=== PATIENT | female | born 1945 | race Caucasian/White ===

== ENCOUNTER → 2018-09-05 | Outpatient (CLI) | payer MEDICARE, OTHER | END | disposition home or self-care (01) | LOC: HKI 15:48 | DX: Z47.1 Aftercare following joint replacement surgery (principal); Z96.652 Presence of left artificial knee joint | CPT/HCPCS: 73564; 73564-RT ==

== ENCOUNTER → 2018-10-09 | Outpatient (CLI) | payer MEDICARE, OTHER | END | disposition home or self-care (01) | LOC: HKI 15:16 | DX: M17.11 Unilateral primary osteoarthritis, right knee (principal) | CPT/HCPCS: 77073 ==

== ENCOUNTER → 2018-12-08 | Outpatient (CLI) | payer MEDICARE, OTHER | END | disposition home or self-care (01) | LOC: RAD 15:49 | DX: Z01.818 Encounter for other preprocedural examination (principal) | CPT/HCPCS: 71046 ==

== ENCOUNTER → 2018-12-11 | Outpatient (CLI) | payer MEDICARE, OTHER | END | disposition home or self-care (01) | LOC: HKI 10:20 | DX: M06.061 Rheumatoid arthritis without rheumatoid factor, right knee (principal); M25.561 Pain in right knee | CPT/HCPCS: 77073 ==

== ENCOUNTER 2018-12-16 05:20 | Observation (INO) | payer MEDICARE, OTHER ==
[2018-12-16] MEDS: ACETAMINOPHEN 500 MG TAB PO (06:00)
[2018-12-16] MEDS: CEFAZOLIN 2 GM/50 ML (PMX) 50 ML (FOR WT < 120 KG) IVPB (06:00)
[2018-12-16] MEDS: TOTAL KNEE REPLACEMENT PAIN COCKTAIL IRR (06:00)
[2018-12-16] MEDS ORDERED: POLYMYXIN B 500000 UNIT INJ (06:55)
[2018-12-16] MEDS ORDERED: CEFAZOLIN 1 GM INJ (07:00)
[2018-12-16] MEDS ORDERED: SEVOFLURANE 15 MIN (07:00)
[2018-12-16] MEDS ORDERED: ONDANSETRON 4 MG INJ (07:00)
[2018-12-16] MEDS ORDERED: DEXAMETHASONE 4 MG/ML 5 ML INJ (07:00)
[2018-12-16] MEDS: LANSOPRAZOLE 30 MG CAP PO (07:10)
[2018-12-16] MEDS: ONDANSETRON 4 MG INJ IV (07:10)
[2018-12-16] MEDS: CELECOXIB 200 MG CAP PO (07:11)
[2018-12-16] MEDS: ACETAMINOPHEN 1000MG/100ML IV 100 ML IVPB (07:12)
[2018-12-16] MEDS: LACTATED RINGER'S 1,000 ML IV ×3 (07:13→18:50)
[2018-12-16] MEDS ORDERED: PROPOFOL 20 ML (07:25)
[2018-12-16] MEDS ORDERED: MIDAZOLAM 1 MG/ML 2 ML INJ (07:25)
[2018-12-16] MEDS ORDERED: FENTAnyl 50 MCG/ML VIAL (07:25)
[2018-12-16] MEDS ORDERED: ROPIVACAINE 0.5 % 30 ML VIAL (07:25)
[2018-12-16] MEDS ORDERED: LIDOCAINE 2% (SDV) 5 ML INJ (07:25)
[2018-12-16] MEDS ORDERED: METOCLOPRAMIDE 10 MG INJ (07:26)
[2018-12-16] MEDS ORDERED: LORAZEPAM 2 MG INJ IV (07:30)
[2018-12-16] MEDS ORDERED: HYDROmorphONE 1 MG/5 ML IV SYRINGE IV ×3 (07:30)
[2018-12-16] MEDS ORDERED: IPRATROPIUM (NEB) 0.5 MG/2.5 ML AMP HHN (07:30)
[2018-12-16] MEDS ORDERED: FENTAnyl 50 MCG/ML VIAL IV ×2 (07:30)
[2018-12-16] MEDS ORDERED: MIDAZOLAM 1 MG/ML 2 ML INJ IV (07:30)
[2018-12-16] MEDS ORDERED: LABETALOL HCL 20MG INJ IV (07:30)
[2018-12-16] MEDS ORDERED: DIPHENHYDRAMINE 50 MG INJ IV (07:30)
[2018-12-16] MEDS ORDERED: ONDANSETRON 4 MG INJ IV (07:30)
[2018-12-16] MEDS ORDERED: LEVALBUTEROL (NEB) 1.25 MG/0.5 ML AMP HHN (07:30)
[2018-12-16] MEDS ORDERED: hydrALAzine 20 MG INJ IV (07:30)
[2018-12-16] MEDS ORDERED: MEPERIDINE 25 MG INJ IV (07:30)
[2018-12-16] MEDS ORDERED: morphine SULFATE/PF (10 MG/10 ML) INJ (07:32)
[2018-12-16] MEDS ORDERED: EPINEPHrine 1 MG INJ (07:34)
[2018-12-16] MEDS: TRANEXAMIC ACID 1GM/100ML(PMX) 100 ML AT CLOSURE X1 IVPB (08:34)
[2018-12-16] MEDS: TRANEXAMIC ACID 1GM/100ML(PMX) 100 ML AT INCISION X1 IVPB ×2 (08:35→10:32)
[2018-12-16] MEDS ORDERED: NA PHOSPHATE/BIPHOS 133 ML ENEMA PR (12:00)
[2018-12-16] MEDS ORDERED: BISACODYL 10 MG SUPP PR (12:00)
[2018-12-16] MEDS ORDERED: BETHANECHOL 25 MG TAB PO (12:00)
[2018-12-16] MEDS ORDERED: NACL 0.9% 3 ML SYG IV (12:00)
[2018-12-16] MEDS ORDERED: MAGNESIUM HYDROXIDE 30ML CUP PO (12:00)
[2018-12-16] MEDS ORDERED: HYDROmorphONE 1 MG/ML SYG IV (12:00)
[2018-12-16] MEDS ORDERED: oxyCODONE 5 MG TAB PO (12:00)
[2018-12-16] MEDS ORDERED: SENNA/DOCUSATE NA (8.6MG/50MG) TAB PO (12:00)
[2018-12-16] MEDS ORDERED: NALOXONE (0.4 MG/ML) INJ IV (12:00)
[2018-12-16] MEDS: DOCUSATE SODIUM 100 MG CAP PO (12:58)
[2018-12-16] MEDS: CEFAZOLIN 2 GM/50 ML (PMX) 50 ML IVPB ×2 (16:19→23:43)
[2018-12-16] MEDS: DIPHENHYDRAMINE 50 MG INJ IV (18:53)
[2018-12-16] MEDS: ATORVASTATIN 20 MG TAB PO (20:35)
[2018-12-16] MEDS: GABAPENTIN 300 MG CAP PO (20:35)
[2018-12-16] MEDS: CALCIUM/VITAMIN D (500/200) TAB PO (20:36)
[2018-12-17 05:11] LABS: ADD MAN DIFF? NO
[2018-12-17 05:23] LABS: BASOPHILS % 0.1 % (0.0-2.0); EOSINOPHILS % 0.1 % (0.0-7.0); HEMATOCRIT 30.7 % (37.0-47.0); HEMOGLOBIN 10.2 g/dl (12.0-16.0); LYMPHOCYTES # 1.3 10^3/ul (0.8-2.9); LYMPHOCYTES % 10.1 % (15.0-51.0); MEAN CORPUSCULAR HEMOGLOBIN 29.1 pg (29.0-33.0); MEAN CORPUSCULAR HGB CONC 33.2 g/dl (32.0-37.0); MEAN CORPUSCULAR VOLUME 87.5 fl (82.0-101.0); MEAN PLATELET VOLUME 10.1 fl (7.4-10.4); MONOCYTE # 0.9 10^3/ul (0.3-0.9); MONOCYTES % 6.9 % (0.0-11.0); NEUTROPHIL # 10.5 10^3/ul (1.6-7.5); NEUTROPHILS % 82.4 % (39.0-77.0); PLATELET COUNT 218 10^3/UL (140-415); RED BLOOD COUNT 3.51 10^6/ul (4.20-5.40); RED CELL DISTRIBUTION WIDTH 14.7 % (11.5-14.5)
[2018-12-17 05:23] LABS: WHITE BLOOD COUNT 12.7 10^3/ul (4.8-10.8)
[2018-12-17 05:53] LABS: ANION GAP 9 (5-13); BLOOD UREA NITROGEN 13 mg/dl (7-20); CALCIUM 9.2 mg/dl (8.4-10.2); CARBON DIOXIDE 29 mmol/L (21-31); CHLORIDE 103 mmol/L (97-110); CREATININE 0.63 mg/dl (0.44-1.00); GLUCOSE 127 mg/dl (70-220); POTASSIUM 4.6 mmol/L (3.5-5.1); SODIUM 141 mmol/L (135-144)
[2018-12-17] MEDS: CEFAZOLIN 2 GM/50 ML (PMX) 50 ML IVPB (08:43)
[2018-12-17] MEDS: CALCIUM/VITAMIN D (500/200) TAB PO ×2 (08:44→20:48)
[2018-12-17] MEDS: DOCUSATE SODIUM 100 MG CAP PO ×2 (08:44→20:48)
[2018-12-17] MEDS: ASPIRIN (EC) 81 MG TAB PO ×2 (08:44→20:48)
[2018-12-17] MEDS: FOLIC ACID 1 MG TAB PO (08:44)
[2018-12-17] MEDS: AMLODIPINE 5 MG TAB PO (08:45)
[2018-12-17] MEDS: METOPROLOL (XL) 50 MG TAB PO (08:45)
[2018-12-17] MEDS: oxyCODONE 5 MG TAB PO ×4 (10:11→21:54)
[2018-12-17] MEDS ORDERED: ONDANSETRON 4 MG INJ IV (12:00)
[2018-12-17] MEDS: LACTATED RINGER'S 1,000 ML IV (15:00)
[2018-12-17] MEDS: ACETAMINOPHEN 500 MG TAB PO ×2 (15:25→22:51)
[2018-12-17] MEDS: GABAPENTIN 300 MG CAP PO (20:48)
[2018-12-17] MEDS: ATORVASTATIN 20 MG TAB PO (20:48)
[2018-12-18] MEDS: oxyCODONE 5 MG TAB PO ×3 (02:19→11:57)
[2018-12-18 06:18] LABS: ADD MAN DIFF? NO
[2018-12-18] MEDS: ACETAMINOPHEN 500 MG TAB PO (06:28)
[2018-12-18] MEDS: PANTOPRAZOLE (EC) 40 MG TAB PO (06:28)
[2018-12-18 06:30] LABS: BASOPHIL # 0.1 10^3/ul (0.0-0.1); BASOPHILS % 0.6 % (0.0-2.0); EOSINOPHILS # 0.4 10^3/ul (0.0-0.5); EOSINOPHILS % 4.4 % (0.0-7.0); HEMATOCRIT 29.3 % (37.0-47.0); HEMOGLOBIN 9.4 g/dl (12.0-16.0); LYMPHOCYTES % 25.2 % (15.0-51.0); MEAN CORPUSCULAR HEMOGLOBIN 28.9 pg (29.0-33.0); MEAN CORPUSCULAR HGB CONC 32.1 g/dl (32.0-37.0); MEAN CORPUSCULAR VOLUME 90.2 fl (82.0-101.0); MEAN PLATELET VOLUME 10.2 fl (7.4-10.4); MONOCYTE # 0.9 10^3/ul (0.3-0.9); NEUTROPHIL # 4.7 10^3/ul (1.6-7.5); NEUTROPHILS % 58.4 % (39.0-77.0); PLATELET COUNT 199 10^3/UL (140-415); RED BLOOD COUNT 3.25 10^6/ul (4.20-5.40); RED CELL DISTRIBUTION WIDTH 14.8 % (11.5-14.5)
[2018-12-18 06:30] LABS: WHITE BLOOD COUNT 8.1 10^3/ul (4.8-10.8)
[2018-12-18 06:47] LABS: ANION GAP 5 (5-13); BLOOD UREA NITROGEN 14 mg/dl (7-20); CALCIUM 8.8 mg/dl (8.4-10.2); CARBON DIOXIDE 33 mmol/L (21-31); CHLORIDE 102 mmol/L (97-110); CREATININE 0.75 mg/dl (0.44-1.00); GLUCOSE 80 mg/dl (70-220); POTASSIUM 4.4 mmol/L (3.5-5.1); SODIUM 140 mmol/L (135-144)
[2018-12-18] MEDS: ASPIRIN (EC) 81 MG TAB PO (08:37)
[2018-12-18] MEDS: METOPROLOL (XL) 50 MG TAB PO (08:38)
[2018-12-18] MEDS: CALCIUM/VITAMIN D (500/200) TAB PO (08:38)
[2018-12-18] MEDS: DOCUSATE SODIUM 100 MG CAP PO (08:38)
[2018-12-18] MEDS: FOLIC ACID 1 MG TAB PO (08:38)
[2018-12-18] MEDS: AMLODIPINE 5 MG TAB PO (08:39)
== END 2018-12-18 12:41 | disposition home health service (06) ==
LOC: REC 05:20 → MS1 13:08
DX: M06.861 Other specified rheumatoid arthritis, right knee (principal); I10 Essential (primary) hypertension; E78.5 Hyperlipidemia, unspecified
CPT/HCPCS: 27447; 73560; 80048; 85025; 86850; 86900; 86901; 87081; 87086; 88304; 88311; 97116; 97161; 97167; 97530; 97535; 99217; C1776

== ENCOUNTER → 2019-01-05 | Outpatient (CLI) | payer MEDICARE, OTHER | END | disposition home or self-care (01) | LOC: HKI 13:40 | DX: Z09 Encounter for follow-up examination after completed treatment for conditions other than malignant neoplasm (principal); Z96.651 Presence of right artificial knee joint | CPT/HCPCS: 73562; 73562-50 ==

== ENCOUNTER → 2019-02-02 | Outpatient (CLI) | payer MEDICARE, OTHER | END | disposition home or self-care (01) | LOC: HKI 13:59 | DX: M06.9 Rheumatoid arthritis, unspecified (principal); Z96.651 Presence of right artificial knee joint | CPT/HCPCS: 73562; 73562-50 ==

== ENCOUNTER 2019-03-12 19:43 | Inpatient (IN) | payer MEDICARE, OTHER ==
[2019-03-12 22:05] LABS: ADD MAN DIFF? NO
[2019-03-12 22:06] LABS: WHITE BLOOD COUNT 16.1 10^3/ul (4.8-10.8)
[2019-03-12 22:06] LABS: BASOPHILS % 0.2 % (0.0-2.0); EOSINOPHILS # 0.3 10^3/ul (0.0-0.5); EOSINOPHILS % 1.7 % (0.0-7.0); HEMATOCRIT 37.8 % (37.0-47.0); HEMOGLOBIN 12.2 g/dl (12.0-16.0); LYMPHOCYTES % 12.4 % (15.0-51.0); MEAN CORPUSCULAR HEMOGLOBIN 28.1 pg (29.0-33.0); MEAN CORPUSCULAR HGB CONC 32.3 g/dl (32.0-37.0); MEAN CORPUSCULAR VOLUME 87.1 fl (82.0-101.0); MEAN PLATELET VOLUME 9.5 fl (7.4-10.4); MONOCYTE # 0.9 10^3/ul (0.3-0.9); MONOCYTES % 5.6 % (0.0-11.0); NEUTROPHIL # 12.8 10^3/ul (1.6-7.5); NEUTROPHILS % 79.7 % (39.0-77.0); PLATELET COUNT 277 10^3/UL (140-415); RED BLOOD COUNT 4.34 10^6/ul (4.20-5.40); RED CELL DISTRIBUTION WIDTH 14.8 % (11.5-14.5)
[2019-03-12 22:10] LABS: ADD UMIC YES; UR ASCORBIC ACID 40 mg/dL (NEGATIVE); UR BILIRUBIN (Dip) NEGATIVE (NEGATIVE); UR BLOOD (Dip) NEGATIVE (NEGATIVE); UR CLARITY CLEAR (CLEAR); UR COLOR YELLOW (YELLOW); UR GLUCOSE (Dip) NEGATIVE (NEGATIVE); UR KETONES (Dip) NEGATIVE (NEGATIVE); UR LEUKOCYTE ESTERASE (Dip) 3+ Leu/ul (NEGATIVE); UR NITRITE (Dip) NEGATIVE (NEGATIVE); UR RBC 1 /HPF (0-5); UR SPECIFIC GRAVITY (Dip) 1.015 (1.003-1.030); UR TOTAL PROTEIN (Dip) NEGATIVE (NEGATIVE); UR UROBILINOGEN (Dip) NEGATIVE (NEGATIVE); UR WBC 17 /HPF (0-5)
[2019-03-12] MEDS: morphine 4 MG/ML VIAL IV (22:12)
[2019-03-12] MEDS: ONDANSETRON 4 MG INJ IV (22:12)
[2019-03-12 22:24] LABS: CARBON DIOXIDE 30 mmol/L (21-31); CHLORIDE 102 mmol/L (97-110); POTASSIUM 4.3 mmol/L (3.5-5.1); SODIUM 139 mmol/L (135-144)
[2019-03-12 22:25] LABS: ALANINE AMINOTRANSFERASE 20 IU/L (13-69); ALBUMIN 4.2 g/dl (3.3-4.9); ALKALINE PHOSPHATASE 178 IU/L (42-121); ANION GAP 7 (5-13); ASPARTATE AMINO TRANSFERASE 20 IU/L (15-46); BILIRUBIN,INDIRECT 0.4 mg/dl (0-1.1); BILIRUBIN,TOTAL 0.4 mg/dl (0.2-1.3); BLOOD UREA NITROGEN 13 mg/dl (7-20); CALCIUM 9.2 mg/dl (8.4-10.2); CREATININE 0.61 mg/dl (0.44-1.00); GLUCOSE 128 mg/dl (70-220); LIPASE 102 U/L (23-300); TOTAL PROTEIN 7.7 g/dl (6.1-8.1)
[2019-03-12 22:36] LABS: TROPONIN-I < 0.012 ng/ml (0.000-0.120)
[2019-03-12] MEDS: CEFTRIAXONE 1 GM/50 ML (PMX) 50 ML IVPB (23:13)
[2019-03-13] MEDS ORDERED: ACETAMINOPHEN 325 MG TAB PO
[2019-03-13] MEDS: AMPICILLIN/SULB 3 GM/NS (PMX) 100 ML IVPB (00:15)
[2019-03-13] MEDS ORDERED: ONDANSETRON 4 MG INJ IV ×4 (01:00→15:00)
[2019-03-13] MEDS ORDERED: ALBUTEROL/IPRATROPIUM (NEB) 3 ML AMP HHN (01:00)
[2019-03-13] MEDS ORDERED: NACL 0.9% 3 ML SYG IV (01:00)
[2019-03-13] MEDS: PIPER-TAZO 3.375 GM IV (PMX) 100 ML IVPB ×4 (01:41→18:47)
[2019-03-13] MEDS: DEXTROSE 5%-0.45% NACL 1,000 ML IV ×3 (01:41→21:00)
[2019-03-13 05:34] LABS: ADD MAN DIFF? NO
[2019-03-13 05:42] LABS: WHITE BLOOD COUNT 13.8 10^3/ul (4.8-10.8)
[2019-03-13 05:42] LABS: BASOPHILS % 0.1 % (0.0-2.0); EOSINOPHILS # 0.1 10^3/ul (0.0-0.5); EOSINOPHILS % 0.4 % (0.0-7.0); HEMATOCRIT 34.2 % (37.0-47.0); HEMOGLOBIN 11.2 g/dl (12.0-16.0); LYMPHOCYTES # 1.4 10^3/ul (0.8-2.9); LYMPHOCYTES % 10.2 % (15.0-51.0); MEAN CORPUSCULAR HEMOGLOBIN 28.3 pg (29.0-33.0); MEAN CORPUSCULAR HGB CONC 32.7 g/dl (32.0-37.0); MEAN CORPUSCULAR VOLUME 86.4 fl (82.0-101.0); MEAN PLATELET VOLUME 9.6 fl (7.4-10.4); MONOCYTE # 0.7 10^3/ul (0.3-0.9); MONOCYTES % 5.2 % (0.0-11.0); NEUTROPHIL # 11.5 10^3/ul (1.6-7.5); NEUTROPHILS % 83.7 % (39.0-77.0); PLATELET COUNT 230 10^3/UL (140-415); RED BLOOD COUNT 3.96 10^6/ul (4.20-5.40); RED CELL DISTRIBUTION WIDTH 14.7 % (11.5-14.5)
[2019-03-13 05:57] LABS: ALANINE AMINOTRANSFERASE 17 IU/L (13-69); ALBUMIN 3.6 g/dl (3.3-4.9); ALBUMIN/GLOBULIN RATIO 1.24; ALKALINE PHOSPHATASE 113 IU/L (42-121); ANION GAP 6 (5-13); ASPARTATE AMINO TRANSFERASE 16 IU/L (15-46); BILIRUBIN,INDIRECT 0.6 mg/dl (0-1.1); BILIRUBIN,TOTAL 0.6 mg/dl (0.2-1.3); BLOOD UREA NITROGEN 9 mg/dl (7-20); CALCIUM 8.8 mg/dl (8.4-10.2); CARBON DIOXIDE 30 mmol/L (21-31); CHLORIDE 103 mmol/L (97-110); CREATININE 0.63 mg/dl (0.44-1.00); GLUCOSE 142 mg/dl (70-220); MAGNESIUM 2.1 mg/dl (1.7-2.5); PHOSPHORUS 3.4 mg/dl (2.5-4.9); POTASSIUM 3.8 mmol/L (3.5-5.1); SODIUM 139 mmol/L (135-144); TOTAL PROTEIN 6.5 g/dl (6.1-8.1)
[2019-03-13] MEDS ORDERED: DESFLURANE 15 MIN (07:00)
[2019-03-13] MEDS ORDERED: ALBUTEROL 0.083% (NEB) 2.5 MG/3 ML AMP HHN ×2 (14:30→15:00)
[2019-03-13] MEDS ORDERED: FENTAnyl 50 MCG/ML VIAL IV ×2 (15:00)
[2019-03-13] MEDS ORDERED: METOCLOPRAMIDE 10 MG INJ IV (15:00)
[2019-03-13] MEDS ORDERED: MEPERIDINE 25 MG INJ IV (15:00)
[2019-03-13] MEDS ORDERED: DIPHENHYDRAMINE 50 MG INJ IV (15:00)
[2019-03-13] MEDS ORDERED: FENTAnyl 50 MCG/ML VIAL (15:14)
[2019-03-13] MEDS ORDERED: ROPIVACAINE 0.5 % 30 ML VIAL (15:14)
[2019-03-13 15:23] LABS: INR 0.89; PROTIME 12.2 Sec (11.9-14.9)
[2019-03-13] MEDS ORDERED: ROCURONIUM 50 MG INJ (15:33)
[2019-03-13] MEDS ORDERED: LIDOCAINE 100 MG SYRINGE (15:33)
[2019-03-13] MEDS ORDERED: SUGAMMADEX SODIUM 200 MG/2 ML VIAL IV (15:33)
[2019-03-13] MEDS ORDERED: PROPOFOL 20 ML (15:33)
[2019-03-13] MEDS ORDERED: SUCCINYLCHOLINE CHLORIDE 100 MG/5 ML SYG IV (15:33)
[2019-03-13] MEDS: BUPIVACAINE 0.25%/EPI (SDV) 30 ML INJ (15:35)
[2019-03-13] MEDS ORDERED: OXYCODONE/ACETAMINOPHEN (5/325) TAB PO (16:00)
[2019-03-13 16:47] LABS: ADD MAN DIFF? NO
[2019-03-13 16:48] LABS: WHITE BLOOD COUNT 14.3 10^3/ul (4.8-10.8)
[2019-03-13 16:48] LABS: BASOPHILS % 0.2 % (0.0-2.0); EOSINOPHILS # 0.2 10^3/ul (0.0-0.5); EOSINOPHILS % 1.1 % (0.0-7.0); HEMATOCRIT 33.6 % (37.0-47.0); HEMOGLOBIN 10.8 g/dl (12.0-16.0); LYMPHOCYTES # 3.3 10^3/ul (0.8-2.9); LYMPHOCYTES % 23.1 % (15.0-51.0); MEAN CORPUSCULAR HEMOGLOBIN 28.3 pg (29.0-33.0); MEAN CORPUSCULAR HGB CONC 32.1 g/dl (32.0-37.0); MEAN PLATELET VOLUME 8.8 fl (7.4-10.4); MONOCYTE # 0.7 10^3/ul (0.3-0.9); MONOCYTES % 4.7 % (0.0-11.0); NEUTROPHIL # 10.1 10^3/ul (1.6-7.5); NEUTROPHILS % 70.4 % (39.0-77.0); PLATELET COUNT 225 10^3/UL (140-415); RED BLOOD COUNT 3.82 10^6/ul (4.20-5.40)
[2019-03-13] MEDS: OXYCODONE/ACETAMINOPHEN (5/325) TAB PO (19:40)
[2019-03-13] MEDS ORDERED: DIPHENHYDRAMINE 25 MG CAP PO (23:00)
[2019-03-14] MEDS: PIPER-TAZO 3.375 GM IV (PMX) 100 ML IVPB ×4 (03:12→18:24)
[2019-03-14] MEDS: OXYCODONE/ACETAMINOPHEN (5/325) TAB PO ×2 (05:32→11:09)
[2019-03-14 05:33] LABS: ADD MAN DIFF? NO
[2019-03-14 05:40] LABS: WHITE BLOOD COUNT 8.6 10^3/ul (4.8-10.8)
[2019-03-14 05:40] LABS: BASOPHILS % 0.4 % (0.0-2.0); EOSINOPHILS # 0.2 10^3/ul (0.0-0.5); EOSINOPHILS % 2.2 % (0.0-7.0); HEMATOCRIT 30.5 % (37.0-47.0); HEMOGLOBIN 9.8 g/dl (12.0-16.0); LYMPHOCYTES # 1.5 10^3/ul (0.8-2.9); LYMPHOCYTES % 17.5 % (15.0-51.0); MEAN CORPUSCULAR HEMOGLOBIN 28.6 pg (29.0-33.0); MEAN CORPUSCULAR HGB CONC 32.1 g/dl (32.0-37.0); MEAN CORPUSCULAR VOLUME 88.9 fl (82.0-101.0); MEAN PLATELET VOLUME 9.5 fl (7.4-10.4); MONOCYTE # 0.5 10^3/ul (0.3-0.9); MONOCYTES % 5.3 % (0.0-11.0); NEUTROPHIL # 6.4 10^3/ul (1.6-7.5); NEUTROPHILS % 74.2 % (39.0-77.0); PLATELET COUNT 201 10^3/UL (140-415); RED BLOOD COUNT 3.43 10^6/ul (4.20-5.40); RED CELL DISTRIBUTION WIDTH 14.9 % (11.5-14.5)
[2019-03-14 05:51] LABS: HEMOGLOBIN A1C 5.8 % (0-5.9)
[2019-03-14 06:17] LABS: TROPONIN-I < 0.012 ng/ml (0.000-0.120)
[2019-03-14 06:31] LABS: ALANINE AMINOTRANSFERASE 23 IU/L (13-69); ALBUMIN 2.8 g/dl (3.3-4.9); ALBUMIN/GLOBULIN RATIO 1.16; ALKALINE PHOSPHATASE 80 IU/L (42-121); ANION GAP 3 (5-13); ASPARTATE AMINO TRANSFERASE 12 IU/L (15-46); BILIRUBIN,INDIRECT 0.6 mg/dl (0-1.1); BILIRUBIN,TOTAL 0.6 mg/dl (0.2-1.3); BLOOD UREA NITROGEN 8 mg/dl (7-20); CALCIUM 8.1 mg/dl (8.4-10.2); CARBON DIOXIDE 31 mmol/L (21-31); CHLORIDE 106 mmol/L (97-110); GLUCOSE 106 mg/dl (70-220); POTASSIUM 3.7 mmol/L (3.5-5.1); SODIUM 140 mmol/L (135-144); TOTAL PROTEIN 5.2 g/dl (6.1-8.1)
[2019-03-14] MEDS: DEXTROSE 5%-0.45% NACL 1,000 ML IV ×2 (06:43→09:45)
[2019-03-14 07:24] LABS: PHOSPHORUS 4.1 mg/dl (2.5-4.9)
[2019-03-14 07:24] LABS: MAGNESIUM 2.1 mg/dl (1.7-2.5)
[2019-03-14] MEDS: ONDANSETRON 4 MG INJ IV ×2 (08:07→14:07)
[2019-03-14] MEDS: FAMOTIDINE 20 MG INJ IV (09:44)
[2019-03-14] MEDS ORDERED: ONDANSETRON 4 MG INJ IV (15:00)
[2019-03-14] MEDS: KETOROLAC 30 MG INJ IV ×2 (15:34→21:25)
[2019-03-15] MEDS: PIPER-TAZO 3.375 GM IV (PMX) 100 ML IVPB ×4 (00:55→18:37)
[2019-03-15] MEDS: KETOROLAC 30 MG INJ IV ×3 (04:13→15:35)
[2019-03-15] MEDS: DEXTROSE 5%-0.45% NACL 1,000 ML IV (04:40)
[2019-03-15 06:26] LABS: ADD MAN DIFF? NO
[2019-03-15 06:37] LABS: WHITE BLOOD COUNT 6.3 10^3/ul (4.8-10.8)
[2019-03-15 06:37] LABS: BASOPHILS % 0.5 % (0.0-2.0); EOSINOPHILS # 0.5 10^3/ul (0.0-0.5); EOSINOPHILS % 8.4 % (0.0-7.0); HEMOGLOBIN 10.1 g/dl (12.0-16.0); LYMPHOCYTES # 2.1 10^3/ul (0.8-2.9); LYMPHOCYTES % 32.4 % (15.0-51.0); MEAN CORPUSCULAR HEMOGLOBIN 28.4 pg (29.0-33.0); MEAN CORPUSCULAR HGB CONC 32.6 g/dl (32.0-37.0); MEAN CORPUSCULAR VOLUME 87.1 fl (82.0-101.0); MEAN PLATELET VOLUME 9.7 fl (7.4-10.4); MONOCYTE # 0.5 10^3/ul (0.3-0.9); MONOCYTES % 7.6 % (0.0-11.0); NEUTROPHIL # 3.2 10^3/ul (1.6-7.5); NEUTROPHILS % 50.6 % (39.0-77.0); PLATELET COUNT 232 10^3/UL (140-415); RED BLOOD COUNT 3.56 10^6/ul (4.20-5.40); RED CELL DISTRIBUTION WIDTH 14.6 % (11.5-14.5)
[2019-03-15 06:56] LABS: PROTIME 13.3 Sec (11.9-14.9)
[2019-03-15 07:09] LABS: TROPONIN-I < 0.012 ng/ml (0.000-0.120)
[2019-03-15 07:27] LABS: ALANINE AMINOTRANSFERASE 20 IU/L (13-69); ALBUMIN 3.1 g/dl (3.3-4.9); ALBUMIN/GLOBULIN RATIO 1.06; ALKALINE PHOSPHATASE 93 IU/L (42-121); ANION GAP 3 (5-13); ASPARTATE AMINO TRANSFERASE 16 IU/L (15-46); BILIRUBIN,INDIRECT 0.4 mg/dl (0-1.1); BILIRUBIN,TOTAL 0.4 mg/dl (0.2-1.3); BLOOD UREA NITROGEN 6 mg/dl (7-20); CALCIUM 8.5 mg/dl (8.4-10.2); CARBON DIOXIDE 31 mmol/L (21-31); CHLORIDE 107 mmol/L (97-110); CREATININE 0.68 mg/dl (0.44-1.00); GLUCOSE 94 mg/dl (70-220); LIPASE 45 U/L (23-300); MAGNESIUM 2.2 mg/dl (1.7-2.5); PHOSPHORUS 3.2 mg/dl (2.5-4.9); POTASSIUM 3.2 mmol/L (3.5-5.1); SODIUM 141 mmol/L (135-144)
[2019-03-15] MEDS: FAMOTIDINE 20 MG INJ IV (09:52)
[2019-03-15] MEDS: GUAIFENESIN/DM 5ML CUP PO (09:57)
== END 2019-03-15 20:45 | disposition home or self-care (01) | DRG 343 ==
LOC: E/R 19:43 → MS1 23:48
PROC: 0DTJ4ZZ Resection of Appendix, Percutaneous Endoscopic Approach (ICD-10-PCS; principal; 2019-03-13 15:10)
DX: K35.30 Acute appendicitis with localized peritonitis, without perforation or gangrene (principal); D64.9 Anemia, unspecified; E78.5 Hyperlipidemia, unspecified; I10 Essential (primary) hypertension; J40 Bronchitis, not specified as acute or chronic; K57.90 Diverticulosis of intestine, part unspecified, without perforation or abscess without bleeding; M51.36 Other intervertebral disc degeneration, lumbar region; M47.9 Spondylosis, unspecified; M48.061 Spinal stenosis, lumbar region without neurogenic claudication; R11.2 Nausea with vomiting, unspecified; R01.1 Cardiac murmur, unspecified; Z96.653 Presence of artificial knee joint, bilateral; Z79.82 Long term (current) use of aspirin
CPT/HCPCS: 36415; 71045; 74176; 76705; 80053; 81001; 83036; 83690; 83735; 84100; 84443; 84484; 85025; 85610; 87086; 88304; 93005; 96374; 96375; 99285-25

== ENCOUNTER → 2019-03-18 | Outpatient (CLI) | payer MEDICARE, OTHER | END | disposition home or self-care (01) | LOC: HKI 10:15 | DX: Z47.1 Aftercare following joint replacement surgery (principal); Z96.651 Presence of right artificial knee joint | CPT/HCPCS: 73562; 73562-50 ==